=== PATIENT | male | born 1985 | race Asian ===

== ENCOUNTER 2025-04-30 09:30 | Outpatient (RCR) | payer OTHER, SELFPAY ==
--- NOTE | 2025-04-17 13:51 | MHC.OT.EP ---
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 He reports weakness in his B UE's keeping him from being able use feeding utensils, write, and grasp on to items. He presents today w/ GOOD ROM, decreased strength and photo mask pattern generator, and affected motor coordination. Pt would benefit from skilled OT therapy to address these deficits and increase the functional use of his B UE's. Frequency and Duration: The patient will be seen 1x a week for 4 weeks Short Term Goals: SEE BELOW Mcfp Goals: Pt will report using his R hand to write for 3 consecutive minutes Pt will be complaint w/ energy conservation techniques Pt will have 35 lbs of R photo mask pattern generator strength Treatment Plan: Therapeutic Exercise Therapeutic Activity Home Exercise Program Neuro Re-ed MHP Joint Mobilization Soft Tissue Mobilization Electronically Signed By: Florencia Gomez OTR/L Please Sign and return to therapist. Thank you once again for your referral.
== END 2025-05-18 12:59 | disposition home or self-care (01) ==
LOC: HO.OT 09:30
PROVIDERS: PCP Family Medicine; Visit Provider Family Medicine
DX: R29.810 Facial weakness (principal)
CPT/HCPCS: 97110; 97166; 97535